=== PATIENT | female | born 1940 | race Caucasian/White ===

== ENCOUNTER → 2022-06-12 10:12 | Outpatient (BNVA) | payer MEDICARE, OTHER, SELFPAY | PROVIDERS: Visit Provider Surgery | DX: K62.89 Other specified diseases of anus and rectum (principal) | CPT/HCPCS: 99203 ==

== ENCOUNTER 2022-08-14 07:55 | Day surgery (SDC) | payer MEDICARE, OTHER, SELFPAY ==
[2022-08-12 13:25] VITALS: BMI 23.8
[2022-08-14 08:20] VITALS: BP 139/81; PULSE 67; RESP 18; TEMP 36.1; O2SAT 98
[2022-08-14] MEDS: sodium chloride 0.9% 1,000 ML 30 ML IV (08:28)
--- NOTE | 2022-08-14 08:51 | ANES.PREANE2 ---
Pre-Anesthetic Assessment Height/Weight: Height 1.57 m Weight 58.967 kg Temp Pulse Resp BP Pulse Ox O2 Del Method 97.0 F L 67 18 139/81 98 08/14/22 08:20 08/14/22 08:20 08/14/22 08:20 08/14/22 08:20 08/14/22 08:20 08/14/22 08:20 Preop Diagnosis: screening colonoscopy Operation Date: 08/14/22 09:45 Proposed Procedures p Colonoscopy 81004,Z12.11(Not Applicable) - Sanchez Acuna DO Familial anesthetic complications: none Last intake: Intake Last Liquid Date 08/13/22 Last Liquid Time 23:45 Last Solid Date 08/12/22 Last Solid Time 18:00 Social No alcohol and No tobacco Airway Submandibular: within normal limits Cervical ROM: within normal limits Mallampati: Class II Dentition: full Pulmonary None reported CV/HEM Hypertension None reported Hepatic None reported GI None reported Metabolic None reported Musc/skel None reported Neuropsych None reported Anesthetic Plan ASA status: 2 Anesthesia: MAC Medications/Allergies Home Medications Medication Instructions Recorded Confirmed Last Taken Type lisinopril 10 1 tab PO DAILY 08/12/22 08/12/22 Unknown History mg-hydrochlorothiazide 12.5 mg tablet Allergies Allergy/AdvReac Type Severity Reaction Status Date / Time codeine Allergy upset Verified 08/12/22 13:22 GI/vomit Current Medications Generic Name Dose Route Start Last Admin Trade Name Freq PRN Reason Stop Dose Admin Sodium Chloride 1,000 mls @ 30 mls/hr 08/14/22 08:00 08/14/22 08:28 Sodium Chloride 0.9% IV 08/15/22 07:59 30 mls/hr .Q24H JEANIE Administration PFSH Anesthesia Medical History Hypertension Surgical History History of esophagogastroduodenoscopy (EGD) Hx of cholecystectomy Hx of colonoscopy Hx of hysterectomy Family History Denies family history of Anesthesia complication Social History Smoking and tobacco status: never smoked Data Anesthesia Cardiac Studies: No Data to Display
--- NOTE | 2022-08-14 09:38 | P.HP_ITS ---
Providers/Chief Complaint Primary Care Provider: Abrahan Saab MD Chief Complaint: Colon cancer screening History of Present Illness Daniela Neil is a 81 year old female here for colonoscopy Medications/Allergies Home Medications Medication Instructions Recorded Confirmed Last Taken Type lisinopril 10 1 tab PO DAILY 08/12/22 08/12/22 Unknown History mg-hydrochlorothiazide 12.5 mg tablet Allergies Allergy/AdvReac Type Severity Reaction Status Date / Time codeine Allergy upset Verified 08/12/22 13:22 GI/vomit PFSH Acute PFSH: Medical History Hypertension Surgical History History of esophagogastroduodenoscopy (EGD) Hx of cholecystectomy Hx of colonoscopy Hx of hysterectomy Family History Denies family history of Anesthesia complication Social History Smoking and tobacco status: never smoked Vitals/I&O/Wt Last Vital Signs Temp 97.0 F L 08/14/22 08:20 Pulse 67 08/14/22 08:20 Resp 18 08/14/22 08:20 BP 139/81 08/14/22 08:20 Pulse Ox 98 08/14/22 08:20 O2 Del Method 08/14/22 08:20 Weight last 48 hrs Weight 130 lb A&P Assessment and plan (1) Colon cancer screening: (2) Anorectal pain: Plan Colonoscopy Attestations Medical Necessity Statement*: Home Coding Level of Care Code Acute Square Cutter for Chg Fwd Diagnoses Colon cancer screening Z12.11 Anorectal pain K62.89
[2022-08-14 10:31] VITALS: BP 137/77; PULSE 64; RESP 18; TEMP 36.2; O2SAT 100
[2022-08-14 10:40] VITALS: BP 116/66; PULSE 63; RESP 18; TEMP 36.5; O2SAT 97
--- NOTE | 2022-08-14 15:29 | ANE.PACU2 ---
Inpatient post-anesthesia follow up: Airway intact: Yes Vital signs: Temperature 97.7 F Pulse Rate 63 Respiratory Rate 18 Blood Pressure 116/66 Pulse Oximetry 97 Oxygen Delivery Me thod Room Air Oxygen Flow Rate Fraction of Inspir ed Oxygen Hydration adequate: Yes Nausea and vomiting: No Pain level: 1 Mental status: Baseline
== END 2022-08-14 11:17 | disposition home or self-care (01) ==
PROVIDERS: PCP Family Medicine; Visit Provider Surgery
PROC: 0DJD8ZZ Inspection of Lower Intestinal Tract, Via Natural or Artificial Opening Endoscopic (ICD-10-PCS; CPT 45378; principal; 2022-08-14 09:45)
DX: Z12.11 Encounter for screening for malignant neoplasm of colon (principal); I10 Essential (primary) hypertension; K57.30 Diverticulosis of large intestine without perforation or abscess without bleeding; K64.4 Residual hemorrhoidal skin tags; D12.4 Benign neoplasm of descending colon
CPT/HCPCS: 45385; 88305; J2704; J7030

== ENCOUNTER → 2022-08-27 16:13 | Outpatient (BNVA) | payer MEDICARE, OTHER, SELFPAY | PROVIDERS: PCP Family Medicine; Visit Provider Surgery | DX: Z09 Encounter for follow-up examination after completed treatment for conditions other than malignant neoplasm (principal); K62.89 Other specified diseases of anus and rectum; D12.6 Benign neoplasm of colon, unspecified; K64.4 Residual hemorrhoidal skin tags | CPT/HCPCS: 99212 ==

== ENCOUNTER 2022-11-01 12:53 | Outpatient (CLI) | payer MEDICARE, OTHER, SELFPAY ==
--- NOTE | 2022-11-01 13:14 | CT_ITS ---
WS: [id number] CT HEAD TECHNIQUE: Noncontrast CT of the head obtained from the skullbase to the vertex. CLINICAL INFORMATION: TRANSIENT NEUROLOGICAL SYMPTOMS/HTN COMPARISON: None. DLP: 938.[address] scans at [facility] use at least one of these dose optimization techniques: automated e xposure control; mA and/or kV adjustment per patient size (includes targeted exams where dose is matc hed to clinical indication); or iterative reconstruction. FINDINGS: No evidence of intracranial hemorrhage or mass effect. Ventricular system and basal cisterns are iyer nt. Mild small vessel changes with moderate parenchymal volume loss. No extra-axial fluid collections . No evidence of mass or mass effect. Intracranial vascular calcification. Incidental low-lying cereb ellar tonsils. Paranasal sinuses and mastoid air cells are well aerated. .Normal visualized soft tissues. CT/CT head wo con* [id number] IMPRESSION: 1. No evidence of intracranial hemorrhage or mass effect. 2. Mild small vessel changes. Moderate parenchymal volume loss. 3. No acute intracranial findings.
== END 2022-11-01 12:54 | disposition home or self-care (01) ==
LOC: RAD 12:56
PROVIDERS: PCP Family Medicine; Visit Provider Family Medicine
DX: R29.90 Unspecified symptoms and signs involving the nervous system (principal); I10 Essential (primary) hypertension
CPT/HCPCS: 70450

== ENCOUNTER → 2023-03-01 15:36 | Outpatient (BNVA) | payer MEDICARE, OTHER, SELFPAY | PROVIDERS: PCP Family Medicine; Visit Provider Nurse Practitioner Family | DX: M79.641 Pain in right hand (principal) | CPT/HCPCS: 73130 ==

== ENCOUNTER → 2024-01-08 10:06 | Outpatient (BNVA) | payer SELFPAY | PROVIDERS: Absent Provider Dermatology; PCP Family Medicine; Referring Provider Dermatology; Visit Provider Dermatology | DX: Z13.6 Encounter for screening for cardiovascular disorders (principal) | CPT/HCPCS: 80061; 82947; 83036 ==

== ENCOUNTER → 2024-06-27 11:32 | Outpatient (BNVA) | payer MEDICARE, OTHER, SELFPAY | PROVIDERS: PCP Family Medicine; Visit Provider Nurse Practitioner | DX: R30.0 Dysuria (principal) | CPT/HCPCS: 81000; 87086 ==